=== PATIENT | male | born 1990 | race Caucasian/White ===

== ENCOUNTER 2023-01-19 07:42 | Emergency (ER) | payer BC ==
[2023-01-19 08:34] LABS: Absolute Lymphocytes (CBC) 2.2 K/uL (0.7-4.9); Hematocrit 43.7 % (39.6-49.0); Lymphocytes % 30.4 % (15.3-44.8); MCV 81.8 fL (80-100); MPV 9.3 fL (7.6-11.3); Platelets 262 thou/uL (152-406); RBC Red Blood Cell Count 5.34 M/uL (4.33-5.43)
[2023-01-19 08:36] LABS: Potassium 3.8 mEq/L (3.5-5.1); Troponin High Sensitivity 3.4 pg/mL (<58.9)
--- NOTE | 2023-01-19 09:32 | EDPHYS ---
Physician Documentation [facility] Name: Juancarlos Alfonso Age: 32 yrs Sex: Male : 1990 Arrival Date: 01/19/2023 Time: 07:42 Bed 15 Private MD: ED Physician Yung High HPI: 01/19 08:13 This 32 yrs old Male presents to ER via Ambulatory with complaints of Chest Pain, Arm sp3 Problem - Arm pit pain. 08:13 32-year-old male with history of ADD, anxiety now presents to the ED with chief sp3 complaint left-sided chest pain with palpitations extending into his left shoulder that has now subsided. 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 No prior history of similar symptoms in the past. No changes in dosage of his Adderall that he takes twice a day. He also denies chest pain, neck pain, left distal arm pain, epigastric pain, shortness of breath, or other anginal equivalents. Currently feels back at baseline.. Historical: - Allergies: 07:55 No Known Allergies; jl7 - Home Meds: 07:55 Adderall XR Oral [Active]; jl7 - PMHx: 07:55 ADD; jl7 - Immunization history:: Adult Immunizations unknown. - Social history:: Smoking status: Patient/guardian denies using tobacco. ROS: 08:14 Constitutional: Negative for fever, chills, and weight loss, Eyes: Negative for injury, sp3 pain, redness, and discharge, ENT: Negative for injury, pain, and discharge, Neck: Negative for injury, pain, and swelling, Respiratory: Negative for shortness of breath, cough, wheezing, and pleuritic chest pain, Abdomen/GI: Negative for abdominal pain, nausea, vomiting, diarrhea, and constipation, Back: Negative for injury and pain, MS/Extremity: Negative for injury and deformity, Skin: Negative for injury, rash, and discoloration, Neuro: Negative for headache, weakness, numbness, tingling, and seizure, Psych: Negative for depression, anxiety, suicide ideation, homicidal ideation, and hallucinations, Allergy/Immunology: Negative for hives, rash, and allergies, Endocrine: Negative for neck swelling, polydipsia, polyuria, polyphagia, and marked weight changes, Hematologic/Lymphatic: Negative for swollen nodes, abnormal bleeding, and unusual bruising, 08:14 All other systems are negative, Exam: 08:14 Constitutional: This is a well developed, well nourished patient who is awake, alert, sp3 and in no acute distress. Head/Face: Normocephalic, atraumatic. Eyes: Pupils equal round and reactive to light, extra-ocular motions intact. Lids and lashes normal. Conjunctiva and sclera are non-icteric and not injected. Cornea within normal limits. Periorbital areas with no swelling, redness, or edema. ENT: Nares patent. No nasal discharge, no septal abnormalities noted. External auditory canals are clear. Oropharynx with no redness, swelling, or masses, exudates, or evidence of obstruction, uvula midline. Mucous membranes moist. Neck: Trachea midline, no thyromegaly or masses palpated, and no cervical lymphadenopathy. Supple, full range of motion without nuchal rigidity, or vertebral point tenderness. No Meningismus. Chest/axilla: Normal chest wall appearance and motion. Nontender with no deformity. No lesions are appreciated. Cardiovascular: Regular rate and rhythm with a normal S1 and S2. No gallops, murmurs, or rubs. Normal PMI, no JVD. No pulse deficits. Respiratory: Lungs have equal breath sounds bilaterally, clear to auscultation and percussion. No rales, rhonchi or wheezes noted. No increased work of breathing, no retractions or nasal flaring. Abdomen/GI: Soft, non-tender, with normal bowel sounds. No distension or tympany. No guarding or rebound. No evidence of tenderness throughout. Back: No spinal tenderness. No costovertebral tenderness. Full range of motion. Skin: Warm, dry with normal turgor. Normal color with no rashes, no lesions, and no evidence of cellulitis. MS/ Extremity: Pulses equal, no cyanosis. Neurovascular intact. Full, normal range of motion. Neuro: Awake and alert, GCS 15, oriented to person, place, time, and situation. Cranial nerves II-XII grossly intact. Motor strength 5/5 in all extremities. Sensory grossly intact. Cerebellar exam normal. Normal gait. Psych: Awake, alert, with orientation to person, place and time. Behavior, mood, and affect are within normal limits. 08:14 ECG was reviewed by the Attending Physician. EKG demonstrates normal sinus rhythm at 84 bpm with normal intervals, normal QRS, normal axis, normal ST/T-segment's without evidence of acute ischemia. Vital Signs: 07:54 BP 135 / 89; Pulse 86; Resp 15; Temp 98.4; Pulse Ox 100% ; Weight 83.91 kg; Height 5 jl7 ft. 5 in. ; Pain 2/10; 08:02 BP 135 / 89; Pulse 88; Resp 18; Pulse Ox 100% on R/A; Pain 8/10; ld1 09:06 BP 115 / 65; Pulse 77; Resp 15; Pulse Ox 98% ; ld1 09:45 BP 122 / 76; Pulse 73; Resp 14; Pulse Ox 99% ; Pain 0/10; nj1 07:54 Body Mass Index 30.79 (83.91 kg, 165.1 cm) jl7 07:54 Pain Scale: Adult jl7 08:02 Pain Scale: Adult ld1 09:45 Pain Scale: Adult nj1 MDM: 07:57 Patient medically screened. sp3 08:15 Data reviewed: vital signs, nurses notes, lab test result(s), EKG, radiologic studies. sp3 ED course: 32-year-old male with PMH and history above now presents with chest pain that is resolved. I am not highly suspicious for acute coronary syndrome, PE, aortic pathology including dissection or aneurysm. Symptoms likely represent a resolved palpitation versus muscle spasm. I have educated patient on what to look for to return and also to follow-up with his physician that is prescribing the Adderall for possible dose change especially if symptoms return. Currently he is with normal vital signs in no acute distress and without symptoms. If work-up which will include EKG which is already been performed, chest x-ray and laboratory values are within normal limits, we will safely discharge patient home at this time.. 08:45 ED course: Laboratory values are within normal limits. Chest x-ray is pending and once sp3 I review and if negative I will discharge patient home at this time. No recurrence of symptoms noted.. 01/19 07:53 Order name: Basic Metabolic Panel; Complete Time: 08:45 ld1 11 07:53 Order name: CBC with Diff; Complete Time: 08:45 ld1 11 07:53 Order name: Troponin HS; Complete Time: 08:45 ld1 01/19 07:53 Order name: XRAY Chest (1 view) ld1 01/19 07:53 Order name: EKG; Complete Time: 07:54 ld01/19 07:53 Order name: Cardiac monitoring; Complete Time: 07:53 ld01/19 07:53 Order name: EKG - Nurse/Tech; Complete Time: 07:53 ld1 01/19 07:53 Order name: IV Saline Lock; Complete Time: 08:01 ld01/19 07:53 Order name: Labs collected and sent; Complete Time: 08:02 ld01/19 07:53 Order name: O2 Per Protocol; Complete Time: 07:53 ld1 01/19 07:53 Order name: O2 Sat Monitoring; Complete Time: 07:53 ld1 Administered Medications: No medications were administered Disposition Summary: 01/19/23 09:31 Discharge Ordered Notes: Location: Home sp3 Condition: Stable sp3 Diagnosis - Chest pain, unspecified sp3 Followup: sp3 - With: Private Physician - When: Upon discharge from the Emergency Department - Reason: Continuance of care Discharge Instructions: - Discharge Summary Sheet sp3 - Nonspecific Chest Pain, Adult sp3 Forms: - Medication Reconciliation Form sp3 - Thank You Letter sp3 - Antibiotic Education sp3 - Prescription Opioid Use sp3 - Patient Portal Instructions sp3 - Leadership Thank You Letter sp3 Signatures: Dispatcher [employer] Bienvenido Silverio RN RN jl7 Smita Chase RN RN ld1 Yung High MD MD sp3 Corrections: (The following items were deleted from the chart) 07:56 07:55 Home Meds: None; shannon ortega
--- NOTE | 2023-01-19 09:32 | ER ---
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 jl7 Coronavirus screen: At this time, the client does not indicate any symptoms associated with coronavirus-19. Ebola Screen: No symptoms or risks identified at this time. Initial Sepsis Screen: Does the patient meet any 2 criteria? No. Patient's initial sepsis screen is negative. Does the patient have a suspected source of infection? No. Patient's initial sepsis screen is negative. Risk Assessment: Do you want to hurt yourself or someone else? Patient reports no desire to harm self or others. Onset of symptoms was January 19, 2023. 07:54 Method Of Arrival: Ambulatory [facility] 07:54 Acuity: ARNOLD 2 jl7 Historical: - Allergies: 07:55 No Known Allergies; jl7 - Home Meds: 07:55 Adderall XR Oral [Active]; jl7 - PMHx: 07:55 ADD; jl7 - Immunization history:: Adult Immunizations unknown. - Social history:: Smoking status: Patient/guardian denies using tobacco. Screenin:02 [facility] ED Fall Risk Assessment (Adult) History of falling in the last 3 months, ld1 including since admission No falls in past 3 months (0 pts). Abuse screen: Denies threats or abuse. Denies injuries from another. Nutritional screening: No deficits noted. Tuberculosis screening: No symptoms or risk factors identified. Assessment: 08:02 General: Appears in no apparent distress. comfortable, Behavior is calm, cooperative, ld1 appropriate for age. Pain: Complains of pain in anterior aspect of left upper chest and left breast Pain radiates to anterior aspect of left shoulder and left axilla Pain currently is 8 out of 10 on a pain scale. Quality of pain is described as throbbing, Pain began 4 hours ago. Is intermittent. Neuro: Level of Consciousness is awake, alert, obeys commands, Oriented to person, place, time, situation. Cardiovascular: Capillary refill < 3 seconds Patient's skin is warm and dry. Rhythm is sinus rhythm Chest pain is described as mild. Respiratory: Airway is patent Respiratory effort is even, unlabored. GI: Abdomen is flat, non-distended. : No signs and/or symptoms were reported regarding the genitourinary system. EENT: No signs and/or symptoms were reported regarding the EENT system. Derm: No signs and/or symptoms reported regarding the dermatologic system. Musculoskeletal: No signs and/or symptoms reported regarding the musculoskeletal system. 09:10 Reassessment: Patient appears in no apparent distress at this time. Patient and/or nj1 family updated on plan of care and expected duration. Pain level reassessed. Patient is alert, oriented x 3, equal unlabored respirations, skin warm/dry/pink. Patient denies pain at this time. Patient states feeling better. Patient states symptoms have improved. 09:45 Reassessment: Patient appears in no apparent distress at this time. No changes from [facility] previously documented assessment. Patient and/or family updated on plan of care and expected duration. Pain level reassessed. Patient is alert, oriented x 3, equal unlabored respirations, skin warm/dry/pink. Patient denies pain at this time. Vital Signs: 07:54 BP 135 / 89; Pulse 86; Resp 15; Temp 98.4; Pulse Ox 100% ; Weight 83.91 kg; Height 5 jl7 ft. 5 in. ; Pain 2/10; 08:02 BP 135 / 89; Pulse 88; Resp 18; Pulse Ox 100% on R/A; Pain 8/10; ld1 09:06 BP 115 / 65; Pulse 77; Resp 15; Pulse Ox 98% ; ld1 09:45 BP 122 / 76; Pulse 73; Resp 14; Pulse Ox 99% ; Pain 0/10; nj1 07:54 Body Mass Index 30.79 (83.91 kg, 165.1 cm) jl7 07:54 Pain Scale: Adult jl7 08:02 Pain Scale: Adult ld1 09:45 Pain Scale: Adult nj1 ED Course: 07:43 Patient arrived in ED. im 07:49 Yung High MD is Attending Physician. sp3 07:51 Smita Chase, ISSA is Primary Nurse. ld1 07:55 Triage completed. jl7 07:55 Arm band placed on right wrist. jl7 08:02 Patient has correct armband on for positive identification. Placed in gown. Bed in low ld1 position. Call light in reach. Side rails up X2. intellectual property legal assistant on. Pulse ox on. NIBP on. Door closed. Noise minimized. Warm blanket given. 08:02 No provider procedures requiring assistance completed. Inserted saline lock: 20 gauge ld1 in right antecubital area, using aseptic technique. Blood collected. Patient maintains SpO2 saturation greater than 95% on room air. 09:23 XRAY Chest (1 view) In Process Unspecified. EDMS 09:45 Provided Education on: Discharge instructions. nj1 09:45 IV discontinued, intact, bleeding controlled. nj1 Administered Medications: No medications were administered Medication: 08:02 VIS not applicable for this client. ld1 Outcome: 09:31 Discharge ordered by . palmer 09:45 Discharged to home ambulatory, nj 09:45 Condition: stable 09:45 Instructed on discharge instructions, follow up and referral plans. 09:49 Patient left the ED. nj1 Signatures: Dispatcher [employer] EDOR Bienvenido Arriaga RN RN jl7 Smita Chase RN RN ld1 Yung High MD MD sp3 Wanda Maravilla RN RN nj1 Karol Carbajal Corrections: (The following items were deleted from the chart) 07:56 07:55 Home Meds: None; jl7 jl7
--- NOTE | 2023-01-19 09:48 | RAD REPORT ---
EXAM DESCRIPTION: [facility] Single View01/19/2023 9:21 am CLINICAL HISTORY: Chest pain COMPARISON: none FINDINGS: The lungs appear clear of acute infiltrate. The heart is normal size IMPRESSION: No acute abnormalities displayed
[2023-01-19 10:03] VITALS: TEMP 98.4
[2023-01-19 10:08] VITALS: BP 122/76; O2SAT 99
--- NOTE | 2023-01-23 14:28 | EKG ---
Test Date: 2023-01-19 Test Time: 08:51:36 [employer] Insurance: [employer] MEASUREMENT RESULTS: Intervals: Rate: 84 MN: 144 QRSD: 74 QT: 354 QTc: 418 [place]: P: 65 MN: 144 QRS: 66 T: 32 INTERPRETIVE STATEMENTS: Normal sinus rhythm Normal ECG No previous ECG available for comparison Electronically Signed On 01-23-23 14:15:37 MEDIA MARKETING MANAGER by Miguelangel Ely
== END 2023-01-19 09:49 | disposition home or self-care (01) ==
LOC: ER 07:42
DX: R07.89 Other chest pain (principal); F98.8 Other specified behavioral and emotional disorders with onset usually occurring in childhood and adolescence
CPT/HCPCS: 36415; 71045; 80048; 84484; 85025; 93005; 99285